=== PATIENT | female | born 1975 | race Hispanic/Latino ===

== ENCOUNTER 2022-09-06 23:09 | Emergency (ER) | payer MEDICAID ==
[~2022-09-06] VITALS: Ht 162.6 cm; Wt 86.6 kg
[2022-09-06 23:13] VITALS: BP 120/80
[2022-09-06] MEDS ORDERED: PRED50TA2 PO (23:20)
[2022-09-06] MEDS ORDERED: DIPH50CA37 PO (23:20)
[2022-09-06] MEDS ORDERED: FAMO20TA8 PO (23:20)
== END 2022-09-06 23:37 | disposition home or self-care (01) ==
LOC: EDH 23:09
DX: R21 Rash and other nonspecific skin eruption (principal); E11.9 Type 2 diabetes mellitus without complications; Z90.49 Acquired absence of other specified parts of digestive tract